=== PATIENT | female | born 1980 | race African-American/Black ===

== ENCOUNTER 2016-08-27 15:19 | Emergency (ER) | payer OTHER ==
[~2016-08-27] VITALS: Ht 160 cm; Wt 52.2 kg
[~2016-08-27 15:19] MED LIST: EXCEDRIN CAPLE1 EACH PO; NORFLEX100 MG PO; ULTRAM 50MG TAB50 MG PO
[2016-08-27] MEDS ORDERED: KEFLEX500 MG PO (15:40)
[2016-08-27] MEDS ORDERED: CLARITIN10 M3 PO (15:40)
[2016-08-27 16:03] VITALS: BP 163/90
== END 2016-08-27 16:04 | disposition home or self-care (01) ==
LOC: ER 15:19
DX: L29.9 Pruritus, unspecified (principal); J06.9 Acute upper respiratory infection, unspecified; J30.2 Other seasonal allergic rhinitis